=== PATIENT | male | born 1990 | race Two or more races ===

== ENCOUNTER 2018-06-03 10:48 | Emergency (ER) | payer MEDICAID ==
[~2018-06-03] VITALS: Ht 180.3 cm; Wt 78.9 kg
[2018-06-03 12:13] VITALS: BP 114/46
== END 2018-06-03 12:13 | disposition home or self-care (01) ==
LOC: ER 10:48
DX: S16.1XXA Strain of muscle, fascia and tendon at neck level, initial encounter (principal); S00.83XA Contusion of other part of head, initial encounter; V49.49XA Driver injured in collision with other motor vehicles in traffic accident, initial encounter; Y93.89 Activity, other specified; Y99.8 Other external cause status; Y92.488 Other paved roadways as the place of occurrence of the external cause
CPT/HCPCS: 72040